=== PATIENT | female | born 1955 | race Caucasian/White ===

== ENCOUNTER 2017-06-19 05:28 | Inpatient (IN) | payer BC ==
[2017-06-19] MEDS: GABAPENTIN 300 MG CAP PO ×2 (05:57→20:31)
[2017-06-19] MEDS: traMADol 50 MG TAB PO (05:57)
[2017-06-19] MEDS: DEXAMETHASONE 1 MG TAB PO (05:57)
[2017-06-19] MEDS ORDERED: CEFAZOLIN 2 GM/50 ML (PMX) 50 ML IVPB (06:00)
[2017-06-19] MEDS ORDERED: TRANEXAMIC ACID 1,000 MG in DEXTROSE 5% 100 ML IVPB (06:00)
[2017-06-19] MEDS ORDERED: BUPIVACAINE 0.5% (SDV) 30 ML, morphine SULFATE (PF) 8 MG, EPINEPHrine 0.3 MG, KETOROLAC... IRR (06:00)
[2017-06-19] MEDS ORDERED: SOD CHLORIDE 0.9% 100 ML, TRANEXAMIC ACID 3,000 MG IRR (06:00)
[2017-06-19] MEDS ORDERED: BUPIVACAINE 0.25% (MPF) 30 ML INJ (06:53)
[2017-06-19] MEDS ORDERED: CEFAZOLIN 1 GM INJ (07:04)
[2017-06-19] MEDS ORDERED: ROCURONIUM 50 MG INJ (07:04)
[2017-06-19] MEDS ORDERED: NEOSTIGMINE 3 MG/3 ML SYRINGE (07:04)
[2017-06-19] MEDS ORDERED: GLYCOPYRROLATE 0.4 MG INJ (07:04)
[2017-06-19] MEDS ORDERED: PROPOFOL 20 ML (07:04)
[2017-06-19] MEDS ORDERED: morphine SULFATE/PF (10 MG/10 ML) INJ (07:05)
[2017-06-19] MEDS ORDERED: MIDAZOLAM 1 MG/ML 2 ML INJ (07:05)
[2017-06-19] MEDS ORDERED: DEXAMETHASONE 4 MG/ML 1 ML INJ (07:05)
[2017-06-19] MEDS ORDERED: ONDANSETRON 4 MG INJ (07:05)
[2017-06-19] MEDS ORDERED: FENTAnyl 50 MCG/ML VIAL (07:05)
[2017-06-19] MEDS: THROMBIN 5000 UNIT VIAL (07:22)
[2017-06-19] MEDS: CA CHLORIDE 10% 10 ML SYRINGE (07:22)
[2017-06-19] MEDS: POLYMYXIN/BACITRACIN 1L IRRIG (07:23)
[2017-06-19] MEDS ORDERED: NALBUPHINE HCL (10 MG/1 ML) INJ IV (08:30)
[2017-06-19] MEDS ORDERED: LABETALOL HCL 20MG INJ IV (08:30)
[2017-06-19] MEDS ORDERED: FENTAnyl 50 MCG/ML VIAL IV ×3 (08:30)
[2017-06-19] MEDS ORDERED: OXYCODONE/ACETAMINOPHEN (5/325) TAB PO ×3 (08:30→09:00)
[2017-06-19] MEDS ORDERED: DIPHENHYDRAMINE 50 MG INJ IV ×3 (08:30→09:00)
[2017-06-19] MEDS ORDERED: ONDANSETRON 4 MG INJ IV ×3 (08:30→09:00)
[2017-06-19] MEDS ORDERED: IPRATROPIUM (NEB) 0.5 MG/2.5 ML AMP HHN (08:30)
[2017-06-19] MEDS ORDERED: ZOLPIDEM 5 MG TAB PO ×2 (08:30→09:00)
[2017-06-19] MEDS ORDERED: MEPERIDINE 25 MG INJ IV (08:30)
[2017-06-19] MEDS ORDERED: MIDAZOLAM 1 MG/ML 2 ML INJ IV (08:30)
[2017-06-19] MEDS ORDERED: HYDROmorphONE (0.2 MG/ML) 10ML SYG IV ×3 (08:30)
[2017-06-19] MEDS ORDERED: ALBUTEROL 0.083% (NEB) 2.5 MG/3 ML AMP HHN (08:30)
[2017-06-19] MEDS ORDERED: TRIMETHOBENZAMIDE 100 MG/ML VIAL IM ×2 (08:30)
[2017-06-19] MEDS ORDERED: hydrALAzine 20 MG INJ IV (08:30)
[2017-06-19] MEDS ORDERED: NALOXONE (0.4 MG/ML) INJ IV (08:30)
[2017-06-19] MEDS ORDERED: HYDROmorphONE 0.5 MG/0.5 ML SYG IV ×2 (08:30)
[2017-06-19] MEDS ORDERED: KETOROLAC 30 MG INJ IV (08:30)
[2017-06-19] MEDS ORDERED: EPHEDrine SULFATE 50 MG/5 ML SYG IV (08:30)
[2017-06-19] MEDS ORDERED: SUGAMMADEX SODIUM 200 MG/2 ML VIAL IV (08:43)
[2017-06-19] MEDS ORDERED: MAGNESIUM HYDROXIDE 30ML CUP PO (09:00)
[2017-06-19] MEDS ORDERED: morphine 2 MG INJ IV ×2 (09:00)
[2017-06-19] MEDS ORDERED: ACETAMINOPHEN 500 MG TAB PO (09:00)
[2017-06-19 09:45] LABS: ADD MAN DIFF? NO
[2017-06-19 09:47] LABS: WHITE BLOOD COUNT 6.1 10^3/ul (4.8-10.8)
[2017-06-19 09:47] LABS: BASOPHILS % 0.3 % (0.0-2.0); EOSINOPHILS % 0.3 % (0.0-7.0); HEMATOCRIT 32.7 % (37.0-47.0); HEMOGLOBIN 10.9 g/dl (12.0-16.0); LYMPHOCYTES # 1.1 10^3/ul (0.8-2.9); LYMPHOCYTES % 17.2 % (15.0-51.0); MEAN CORPUSCULAR HEMOGLOBIN 34.1 pg (29.0-33.0); MEAN CORPUSCULAR HGB CONC 33.3 g/dl (32.0-37.0); MEAN CORPUSCULAR VOLUME 102.2 fl (82.0-101.0); MEAN PLATELET VOLUME 9.1 fl (7.4-10.4); MONOCYTE # 0.1 10^3/ul (0.3-0.9); MONOCYTES % 1.1 % (0.0-11.0); NEUTROPHIL # 4.9 10^3/ul (1.6-7.5); PLATELET COUNT 174 10^3/UL (140-415); RED CELL DISTRIBUTION WIDTH 12.6 % (11.5-14.5)
[2017-06-19] MEDS: TRANEXAMIC ACID 1,000 MG in DEXTROSE 5% 100 ML IV (10:16)
[2017-06-19] MEDS: SENNA/DOCUSATE NA (8.6MG/50MG) TAB PO ×2 (12:49→20:32)
[2017-06-19] MEDS: DEXAMETHASONE 2 MG TAB PO ×3 (13:27→23:07)
[2017-06-19] MEDS: LACTATED RINGER'S 1,000 ML IV ×2 (13:27→18:48)
[2017-06-19] MEDS: CEFAZOLIN 1 GM/50 ML (PMX) 50 ML IVPB ×2 (15:48→23:07)
[2017-06-19] MEDS: ATORVASTATIN 10 MG TAB PO (20:31)
[2017-06-20] MEDS: LACTATED RINGER'S 1,000 ML IV ×2 (04:37→14:48)
[2017-06-20] MEDS: DEXAMETHASONE 2 MG TAB PO (05:11)
[2017-06-20 06:07] LABS: ADD MAN DIFF? NO
[2017-06-20 06:23] LABS: WHITE BLOOD COUNT 9.4 10^3/ul (4.8-10.8)
[2017-06-20 06:23] LABS: ABNORMAL IP MESSAGE 1; BASOPHILS % 0.1 % (0.0-2.0); HEMATOCRIT 27.9 % (37.0-47.0); HEMOGLOBIN 9.5 g/dl (12.0-16.0); LYMPHOCYTES # 0.6 10^3/ul (0.8-2.9); LYMPHOCYTES % 6.3 % (15.0-51.0); MEAN CORPUSCULAR HEMOGLOBIN 34.2 pg (29.0-33.0); MEAN CORPUSCULAR HGB CONC 34.1 g/dl (32.0-37.0); MEAN CORPUSCULAR VOLUME 100.4 fl (82.0-101.0); MEAN PLATELET VOLUME 9.7 fl (7.4-10.4); MONOCYTE # 0.5 10^3/ul (0.3-0.9); NEUTROPHIL # 8.3 10^3/ul (1.6-7.5); NEUTROPHILS % 88.3 % (39.0-77.0); PLATELET COUNT 164 10^3/UL (140-415); RED BLOOD COUNT 2.78 10^6/ul (4.20-5.40); RED CELL DISTRIBUTION WIDTH 12.7 % (11.5-14.5)
[2017-06-20] MEDS: KETOROLAC 15 MG INJ IV (06:38)
[2017-06-20] MEDS: CEFAZOLIN 1 GM/50 ML (PMX) 50 ML IVPB (06:38)
[2017-06-20] MEDS: SENNA/DOCUSATE NA (8.6MG/50MG) TAB PO (09:06)
[2017-06-20] MEDS: ASPIRIN 81 MG TAB PO (09:07)
[2017-06-20] MEDS: OXYCODONE/ACETAMINOPHEN (5/325) TAB PO ×2 (09:08→14:24)
== END 2017-06-20 14:57 | disposition home or self-care (01) | DRG 470 ==
LOC: REC 05:28 → MS1 10:45
PROVIDERS: Orthopaedic Surgery
PROC: 0SRB04A Replacement of Left Hip Joint with Ceramic on Polyethylene Synthetic Substitute, Uncemented, Open Approach (ICD-10-PCS; principal; 2017-06-19 07:00)
DX: M16.12 Unilateral primary osteoarthritis, left hip (principal); E78.5 Hyperlipidemia, unspecified
CPT/HCPCS: 72170; 73530; 85025; 86999; 87086; 97110; 97116; 97162; 97530